=== PATIENT | female | born 2005 | race Caucasian/White ===

== ENCOUNTER 2024-03-08 11:40 | Emergency (ER) | payer MEDICAID ==
[~2024-03-08] VITALS: Ht 160 cm; Wt 54.0 kg
[2024-03-08 11:42] VITALS: O2SAT 100
[2024-03-08 11:44] VITALS: BP 116/74; PULSE 83; RESP 16; TEMP 98.6; O2SAT 100
[2024-03-08] MEDS ORDERED: NEOM10DR11 LEFT EAR (13:15)
[2024-03-08] MEDS ORDERED: TOPUD MT (13:15)
[2024-03-08] MEDS ORDERED: IBUP-1523 MT (13:15)
== END 2024-03-08 13:32 | disposition home or self-care (01) ==
LOC: ER 11:40
DX: S00.412A Abrasion of left ear, initial encounter (principal); W44.F9XA Other object of natural or organic material, entering into or through a natural orifice, initial encounter; Y93.89 Activity, other specified; Y92.89 Other specified places as the place of occurrence of the external cause; Y99.8 Other external cause status
CPT/HCPCS: 99284